=== PATIENT | female | born 1950 | race Two or more races ===

== ENCOUNTER 2021-09-06 08:46 | Inpatient (IN) | payer MEDICARE, OTHER ==
[~2021-09-06] VITALS: Ht 160 cm; Wt 48.1 kg
--- NOTE | 2021-09-06 08:55 | NUR ---
[id number] FOR ALTERED MENTAL STATUS AND DESATURATION AT 90% IN ROOM AIR. RECEIVE PATIENT ON 15L NON REBREATHER MASK. RESPONDING TO PAINFUL STIMULI. PLACED ON BED, ATTACHED TO MONITOR. SEEN AND ATTENDED BY
--- NOTE | 2021-09-06 09:09 | NUR ---
LAST DIALYSIS 09/05/2021
--- NOTE | 2021-09-06 09:10 | NUR ---
BLOOD DRAWN, SWAB FOR COVID ANTIGEN, URINE COLLECTED AND SENT TO LAB.
[2021-09-06 09:21] LABS: BASOPHILS # (AUTO) 0.1 K/uL (0.0-0.2); EOSINOPHILS % (AUTO) 1.5 % (0.0-6.0); HEMATOCRIT 33 % (33-45); HEMOGLOBIN 10.7 g/dL (11.5-14.8); LYMPHOCYTES # (AUTO) 1.1 K/uL (0.8-4.8); LYMPHOCYTES % (AUTO) 19.6 % (20.0-44.0); MEAN CORPUSCULAR HGB CONC 32 g/dl (31.0-36.0); MEAN CORPUSCULAR VOLUME 96 fL (82-100); MONOCYTES # (AUTO) 0.5 K/uL (0.1-1.30); MONOCYTES % (AUTO) 9.6 % (2.0-12.0); NEUTROPHILS # (AUTO) 3.9 K/uL (1.8-8.9); NEUTROPHILS % (AUTO) 68.3 % (43.0-81.0); PLATELET COUNT (AUTO) 180 K/uL (150-450); RED BLOOD CELL COUNT(AUTO) 3.45 MIL/uL (4.0-5.2); WHITE BLOOD COUNT (AUTO) 5.6 K/uL (4.3-11.0)
[2021-09-06 09:31] LABS: CALCIUM, SERUM 9.2 mg/dL (8.5-10.1); CARBON DIOXIDE 31 mmol/L (21-32); CHLORIDE 96 mmol/L (98-107); CREATININE 4.5 mg/dL (0.6-1.3); GLUCOSE 69 mg/dL (74-106); POTASSIUM 3.5 mmol/L (3.5-5.1); SODIUM SERUM 137 mmol/L (136-145); UREA NITROGEN, BLOOD 35 mg/dL (7-18)
[2021-09-06 09:32] LABS: SERUM AMMONIA 15 umol/L (11-32)
[2021-09-06 09:40] LABS: ALANINE AMINOTRANSFERASE 8 U/L (12-78); ALBUMIN 2.2 g/dL (3.4-5.0); ALCOHOL, BLOOD < 3 mg/dL (0-0); ALKALINE PHOSPHATASE 206 U/L (46-116); ASPARTATE AMINOTRANSFERASE 17 U/L (15-37); BILIRUBIN,DIRECT 0.8 mg/dL (0.0-0.2); BILIRUBIN,TOTAL 1.2 mg/dL (0.2-1.0); TOTAL PROTEIN, SERUM 8.1 g/dL (6.4-8.2)
[2021-09-06 09:42] LABS: ACETAMINOPHEN 0 ug/ml (10-30)
[2021-09-06 09:44] LABS: BILIRUBIN,URINE SMALL (NEGATIVE); COLOR,URINE YELLOW (YELLOW); LEUKOCYTE ESTERASE ,URINE MODERATE (NEGATIVE); NITRITE, URINE NEGATIVE (NEGATIVE); PROTEIN,URINE >=300 mg/dl (NEGATIVE); UGLUCOSE NEGATIVE (NEGATIVE); UROBILINOGEN,URINE 0.2 EU/dL (0.2)
--- NOTE | 2021-09-06 09:50 | NUR ---
THE PATIENT IS TAKEN TO CT VIA RNEY
[2021-09-06] MEDS ORDERED: MAGN400O6 PO (09:53)
[2021-09-06] MEDS ORDERED: CRAN425C6 PO (09:53)
[2021-09-06] MEDS ORDERED: EZET10TA16 PO (09:53)
[2021-09-06] MEDS ORDERED: INSU100V7 SQ (09:53)
[2021-09-06] MEDS ORDERED: POLY15DR40 EACHEYE (09:53)
[2021-09-06] MEDS ORDERED: ASCO-352 PO (09:53)
[2021-09-06] MEDS ORDERED: FERR325T23 PO (09:53)
[2021-09-06] MEDS ORDERED: AMIO100T PO (09:53)
[2021-09-06] MEDS ORDERED: ATOR10TA PO (09:53)
[2021-09-06] MEDS ORDERED: CARV6.252 PO (09:53)
[2021-09-06] MEDS ORDERED: MULT-447 PO (09:53)
[2021-09-06] MEDS ORDERED: CALC1TAB30 PO (09:53)
[2021-09-06] MEDS ORDERED: TYL2T PO (09:53)
[2021-09-06] MEDS ORDERED: NITR0.4T48 SL (09:53)
[2021-09-06] MEDS ORDERED: TAMS-12 PO (09:53)
[2021-09-06] MEDS ORDERED: FURO-144 PO (09:53)
[2021-09-06] MEDS ORDERED: ACET-2605 PO (09:53)
[2021-09-06] MEDS ORDERED: PANT20TA2 PO (09:53)
[2021-09-06] MEDS ORDERED: ROPI0.255 PO (09:53)
[2021-09-06] MEDS ORDERED: ACET-868 PO (09:53)
[2021-09-06] MEDS ORDERED: SACU1TAB4 PO (09:53)
[2021-09-06] MEDS ORDERED: INSU100V11 SQ (09:53)
[2021-09-06] MEDS ORDERED: ASPI-1169 PO (09:53)
[2021-09-06] MEDS ORDERED: SODI650T PO (09:53)
[2021-09-06] MEDS ORDERED: SEVE800T8 PO (09:53)
[2021-09-06] MEDS ORDERED: CLOP75TA15 PO (09:53)
--- NOTE | 2021-09-06 09:58 | NUR ---
THE PATIENT IS BACK FROM CT VIA [facility] [place]
[2021-09-06] MEDS ORDERED: ENOXAPARIN SODIUM 60 MG/0.6 ML DISP.SYRIN SQ ONE ×2 (10:00→10:13)
--- NOTE | 2021-09-06 10:00 | NUR ---
RT AT THE BEDSIDE FOR ABG
[2021-09-06 10:07] LABS: ABG BASE EXCESS 4.9 mmol/L; ABG PCO2 38.6 mmHg (35.0-45.0); ABG PH 7.487 (7.350-7.450); ABG PO2 48.5 mmHg (75.0-100.0); COHb 0.8 % (0.5-1.5); MetHb 0.3 % (0.0-1.5); O2Hb 81.7 % (94.0-97.0); SITE, ABG Right Radial
[2021-09-06 10:23] LABS: THYROID STIMULATING HORMONE 6.031 uIU/mL (0.358-3.74)
--- NOTE | 2021-09-06 10:23 | NUR ---
[facility] CALLED [employer]GRAPH[employer] SERVICES SUPERVISOR PAGED.
[2021-09-06] MEDS ORDERED: VANCOMYCIN 1 GM in IV D5W 250 ML IV ONE (10:30)
[2021-09-06] MEDS ORDERED: AZTREONAM 2 G in IV NS 0.9% 100 ML IV ONE (10:30)
[2021-09-06] MEDS ORDERED: CLINDAMYCIN 600 MG in IV D5W 100 ML IV ONE (10:30)
[2021-09-06 10:34] LABS: WBC,URINE TOO NUMEROUS TO COUN /HPF (0-3)
[2021-09-06 10:35] LABS: BACTERIA,URINE Few /HPF (None Seen); SQUAMOUS EPITHELIAL CELL,UR Rare /HPF (None Seen)
--- NOTE | 2021-09-06 10:51 | NUR ---
GOT BED 328-1
--- NOTE | 2021-09-06 11:18 | NUR ---
REPORT GIVEN TO LORNA WU
--- NOTE | 2021-09-06 11:51 | NUR ---
PATIENT TRANSFERED TO [facility] IN STABLE CONDITION PER ACLS POLICY
[2021-09-06] MEDS ORDERED: ONDANSETRON HCL/PF 4 MG/2 ML VIAL IVP PRN (12:00)
[2021-09-06] MEDS ORDERED: Z GUARD REMEDY 4 OZ OINT TP PRN (12:00)
[2021-09-06] MEDS ORDERED: ACETAMINOPHEN 650 MG/SUPP.RECT RC PRN (12:00)
--- NOTE | 2021-09-06 12:00 | NUR ---
WORLD RENOWNED CHEF AND RESTAURANT OWNER OPENING NOTES RECEIVED PATIENT VIA GURNEY FROM ER. AT 12 PM.THIERRY TRANSFERED THE PATIENT VIA GURNEY. PATIENT NON VERBAL AND RESPONSIVE TO PAIN STIMULI ONLY. NO PAIN NOTED NO SOB NOTED, NO FACIAL GRIMACING NOTED. VITAL SIGNS: VT=001/67, P=89, T=98.0, RR=18, 02 = 100 % VIA NASAL CANNULA AT 4 L/MIN. IV ACCESS ON THE RAC G# 20 AND LAC G#20 INTACT. PATIENT IS ON ATB THERAPY. PATIENT IS ON TELE MONITOR. BOTH UPPER AND LOWER [id number] NOTED WITH SKIN DISCOLORATION AND MULTIPLE DRY WOUNDS. LEFT LOWER ARM NOTED WITH OPEN SKIN. PATIENT HAS ONLY UPPER DENTURES IN HER MOUTH, DAUGHTERS PRESENT WHEN CHECKED THE DENTURES. KEPT HEAD OF THE BED ELEVATED FOR ASPIRATION PRECAUTION. BED LOCKED IN THE LOWEST POSITION, SIDE RAILS UP TIMES 2. CALL LIGHT AND TABLE IN REACH. WILL CONTINUE TO MONITOR.
[2021-09-06] MEDS ORDERED: MEROPENEM 1 G in IV NS 0.9% 100 ML IV SCH (13:00)
--- NOTE | 2021-09-06 13:10 | NUR ---
RN NOTES INFORMED VENTILATING EXPERT REGGIE MULLINS AT 1304 FOR TROPONIN-I LEVEL OF 73. NO NEW ORDERS WERE GIVEN
[2021-09-06] MEDS: MEROPENEM 500 MG in IV NS 0.9% 50 ML IV SCH (15:15)
[2021-09-06] MEDS ORDERED: DEXTROSE 50%-WATER 50 ML DISP.SYRIN IV PRN (16:30)
[2021-09-06] MEDS: BLOOD SUGAR DIAGNOSTIC 1 EACH STRIP IN SCH ×2 (17:27→21:32)
[2021-09-06] MEDS: INSULIN REGULAR, HUMAN 100 UNIT/ML 3 ML VIAL SQ PRN ×2 (17:28→21:32)
[2021-09-06] MEDS: IV D5/0.45 NACL 1,000 ML IV PRN (17:43)
--- NOTE | 2021-09-06 19:39 | NUR ---
BOAT RENTAL CLERK CLOSING NOTES PATENT NONVERBAL AND WITH CLOSED EYES IN HER BED. RESPONDS TO PAIN STIMULI ONLY. NO SOB NOTED. NO DISTRESS NOTED. ON TELE MONITOR READING SR WITH BBB AND PVCS AND OCCASIONAL A PACING. IV ACCESS ON BOTH RAC G20 and AND LAC g20 INTACT.PATIENT IS ON IV D5 1/2 NS . BLOOD SUGAR 1700 WAS 64. CHECKED BLOOD SUGAR AFTER D51/2 NS INCREASED TO 74 AT 1930. DURING ROUNDS NOTED PATIENT HAD BLOODY DROOLING. CHECKED THE BACK OF THE THROAT NOTED WITH SLIGHT BLOOD . INFORMED MONOGRAM MAKER SUSANNA PAREDES. REGGIE MULLINS RESPONDED THAT TO TAKE OUT UPPER DENTURE WHEN PATIENT IS ALERT. AND ENDORSED ANIMAL TECHNICIAN NURSE FOR CLOSE MONITORING THE PATIENT FOR BLEEDING AND BLOOD SUGAR CHECKS. KEPT HEAD OF THE BED ELEVATED FOR ASPIRATION PRECAUTION. .ALL DUE MEDS GIVEN. BED LOCKED IN THE LOWEST POSITION. CALL LIGHT AND TABLE IN REACH. WILL ENDORSE FOR INCOMING SHIFT FOR CHIDI.
--- NOTE | 2021-09-06 19:41 | NUR ---
RN OPENING NOTES RECEIVED PT IN BED, ASLEEP, NONVERBAL. ON NC 2LPM AND TOLERATING WELL. NO SOB NOTED. NO S/SX OF RESPIRATORY DISTRESS NOTED. TLEMONITOR DETECTS SR WITH BBB AND PVC AND OCASSIONAL A-PACING AND RATE OF 66. IV ACCESS IN LAC #20G AND RAC #20G RUNNING D51/2NS @ 50 ML/HR. SAFETY PRECAUTIONS IN PLACE: BED IN LOWEST, LOCKED POSITION, SIDERAILS UPx2, AND BRAKES ON. TABLE AND CALL LIGHT WITHIN REACH. WILL CONTINUE TO MONITOR.
[2021-09-07] VITALS (53 sets, daily range): BP systolic 93–166; BP diastolic 46–107
[2021-09-07] MEDS: MEROPENEM 500 MG in IV NS 0.9% 50 ML IV SCH ×2 (02:00→18:22)
--- NOTE | 2021-09-07 03:29 | NUR ---
CONTACT NUMBER FOR DAUGHTER, FATMATA, IS
--- NOTE | 2021-09-07 05:17 | NUR ---
RT STAT ABG COMPLETED, RESULTS GIVEN TO NURSE AND ICU CHARGE NURSE СВЕТЛАНА
[2021-09-07 05:29] LABS: ABG BASE EXCESS 3.8 mmol/L; ABG OXYGEN SATURATION 99.7 % (92.0-98.5); ABG PCO2 36.2 mmHg (35.0-45.0); ABG PH 7.492 (7.350-7.450); ABG PO2 325.8 mmHg (75.0-100.0); COHb 1.5 % (0.5-1.5); MetHb 0.1 % (0.0-1.5); O2Hb 98.1 % (94.0-97.0); SITE, ABG Right Radial; VENT MODE, BG NRB 100%
--- NOTE | 2021-09-07 05:55 | NUR ---
RN NOTES RECEIVED PATIENT FROM [facility] VIA BED FROM [facility] NURSE. WITH IV ACCESS AT RAC AND LAC #20 PATENT FLUSHES WELL. WITH R CW PERMACATH INTACT NO BLEEDING NOTED. WITH L ICD. HOOKED TO TELE MONITOR. ON VENTURI MASK @ 6L 28% FIO2 SATING 92%. VITAL SIGNS TAKEN AND RECORDED. PATIENT IS REPONDED TO PAINFUL STIMULI. STARTED IV D5 1/2 NS @ 50 ML/HR. RT AT BEDSIDE. WILL CONTINUE TO MONITOR.
[2021-09-07] MEDS: IV D5/0.45 NACL 1,000 ML IV PRN ×2 (06:05→18:37)
--- NOTE | 2021-09-07 06:05 | NUR ---
TRANSFER NOTES PT BEGAN HAVING EPISODES OF APNEA AT APPROXIMATELY 0430. CHARGE NURSE MADE AWARE. ICU CHARGE NURSE ORDERED STAT ABG AND CHEST X-RAY. PLACED PATIENT ON NON-REBREATHER AND OXYGEN SATURATION WENT UP TO 97%. RT THEN PLACED PT ON VENTURI MASK. DR. GOTTI ORDERED PATIENT TO BE TRANSFERRED TO [facility] AND NO NEW ORDERS. ALL REQUESTED DR. [facility] BE CONSULTED FOR FURTHER ORDERS. PATIENT TRANSFERRED APPROXIMATELY @ 0550 TO ROOM 116-1. VITAL SIGNS STABLE. BEDSIDE REPORT GIVEN TO [facility] NURSE.
--- NOTE | 2021-09-07 06:20 | NUR ---
RN NOTES PATIENT NOTED WITH SERIES OF EPISODES OF APNEA SATURATION GOES DOWN TO 86%. STILL ON VENTURI MASK @ 6L.
--- NOTE | 2021-09-07 06:49 | NUR ---
RN NOTES STILL WITH SERIES OF APNEIC EPISODES SATURATION DROPS TO 82% ON VENTURI MASK. WILL CONTINUE TO CLOSELY MONITOR
[2021-09-07 06:50] LABS: BASOPHILS # (AUTO) 0.1 K/uL (0.0-0.2); BASOPHILS % (AUTO) 0.8 % (0.0-2.0); EOSINOPHILS % (AUTO) 0.9 % (0.0-6.0); HEMATOCRIT 34 % (33-45); HEMOGLOBIN 11.1 g/dL (11.5-14.8); LYMPHOCYTES # (AUTO) 1.1 K/uL (0.8-4.8); LYMPHOCYTES % (AUTO) 14.3 % (20.0-44.0); MEAN CORPUSCULAR HGB CONC 32 g/dl (31.0-36.0); MEAN CORPUSCULAR VOLUME 97 fL (82-100); MONOCYTES # (AUTO) 0.6 K/uL (0.1-1.30); MONOCYTES % (AUTO) 7.5 % (2.0-12.0); NEUTROPHILS # (AUTO) 6.1 K/uL (1.8-8.9); NEUTROPHILS % (AUTO) 76.5 % (43.0-81.0); PLATELET COUNT (AUTO) 219 K/uL (150-450); RED BLOOD CELL COUNT(AUTO) 3.52 MIL/uL (4.0-5.2); WHITE BLOOD COUNT (AUTO) 7.9 K/uL (4.3-11.0)
--- NOTE | 2021-09-07 07:05 | NUR ---
0705 DR ANTONIO AT BEDSIDE AND UPDATED AND ON PATIENT'S CONDITION. MADE HIM AWARE THAT PATIENT HAS BEEN HAVING FREQUENT APNEA EPISODES WITH ORDER TO DO STAT ABG AND TRANSFER PATIENT TO ICU. ORDER NOTED, ICU NOTIFIED.
--- NOTE | 2021-09-07 07:30 | NUR ---
0730 TRANSFERRED TO ICU ON ACLS PROTOCOL. PATIENT IN NO RESPIRATORY DISTRESS STILL NOTED WITH FREQUENT EPISODES OF APNEA. BEDSIDE REPORT GIVEN BY LORNA CHAMBERS TO DRIVEWAY SEALERLORNA SANCHEZ WITH QUESTIONS ANSWERED.
--- NOTE | 2021-09-07 07:40 | NUR ---
rn note Patient was transferred from [facility] unit at this time on Dx of respiratory distress. patient on face mask 9L, bedside monitor shows O2-95%, HR- 64. Patient confuse, unable to open ayes when calling name or touched. iv access on LAC area intact. bs-113mg/dl. patient has multiple discoloration, and scabs upper and lower extremities. patient has pacemaker on left upper chest, and HD cath on RUC intact. call light within to reach. will follow up.
[2021-09-07 07:59] LABS: ALBUMIN 2.1 g/dL (3.4-5.0); BILIRUBIN,DIRECT 0.7 mg/dL (0.0-0.2); BILIRUBIN,TOTAL 1.1 mg/dL (0.2-1.0); CALCIUM, SERUM 9.3 mg/dL (8.5-10.1); CREATININE 5.3 mg/dL (0.6-1.3); MAGNESIUM 2.1 mg/dL (1.8-2.4); POTASSIUM 3.7 mmol/L (3.5-5.1); TOTAL PROTEIN, SERUM 7.8 g/dL (6.4-8.2)
[2021-09-07] MEDS: PANTOPRAZOLE 40 MG VIAL IV SCH (08:09)
[2021-09-07] MEDS: BLOOD SUGAR DIAGNOSTIC 1 EACH STRIP IN SCH ×4 (08:10→21:16)
--- NOTE | 2021-09-07 10:21 | NUR ---
PT TO UNSTABLE FOR CT/ ORDERING MD
--- NOTE | 2021-09-07 10:35 | NUR ---
PT INTUBATED WITH 7.5 ET-TUBE. SECURED AT 21CM. PLACED ON SETTINGS ORDERED. ALARMS SET AND AUDIBLE. AMBU-BAG AT HEAD OF BED VENT PLUGGED INTO RED OUTLET. B/S CLEAR AND EQUAL.
--- NOTE | 2021-09-07 10:38 | NUR ---
RN NOTES PATIENT GET INTUBATED AT THIS TIME ETT /VENT SETTING 7.5/21 , FIO2-100%, PEEP-5, TV-500, AC-14. PATIENT ON SOFT BILATERAL RESTRAIN INTACT, NGT INTACT. WILL FOLLOW UP.
[2021-09-07] MEDS ORDERED: PROPOFOL 100 ML IV PRN (11:00)
[2021-09-07 11:19] LABS: ABG BASE EXCESS 5.5 mmol/L; ABG OXYGEN SATURATION 89.2 % (92.0-98.5); ABG PCO2 38.2 mmHg (35.0-45.0); ABG PH 7.498 (7.350-7.450); ABG PO2 59.1 mmHg (75.0-100.0); AaDO2 95.5 mmHg; COHb 1.3 % (0.5-1.5); MetHb 0.3 % (0.0-1.5); O2Hb 87.8 % (94.0-97.0); SITE, ABG Right Radial; VENT MODE, BG VENTI MASK
[2021-09-07] MEDS ORDERED: ROCURONIUM BROMIDE 50 MG/5 ML IV ONE (12:12)
[2021-09-07] MEDS ORDERED: ETOMIDATE 2 MG/ML VIAL IV ONE (12:12)
[2021-09-07] MEDS: PROPOFOL 10MG/ML 50ML 50 ML IV PRN ×4 (12:26→22:03)
[2021-09-07] MEDS ORDERED: VANCOMYCIN POST DIALYSIS 500MG IV PRN ×2 (13:00)
[2021-09-07] MEDS ORDERED: PHARMACY TO CHANGE PO MEDS TO GT/NG XX PRN (13:30)
[2021-09-07 13:35] LABS: ABG BASE EXCESS 3.3 mmol/L; ABG OXYGEN SATURATION 99.6 % (92.0-98.5); ABG PCO2 39.8 mmHg (35.0-45.0); ABG PH 7.456 (7.350-7.450); ABG PO2 294.8 mmHg (75.0-100.0); AaDO2 378.4 mmHg; COHb 0.7 % (0.5-1.5); MetHb 0.2 % (0.0-1.5); O2Hb 98.7 % (94.0-97.0); PEEP,BG 5 cm H2O; SITE, ABG Right Radial; VT, ABG 450 mL
--- NOTE | 2021-09-07 14:35 | NUR ---
rn notes patient getting hemodialysis at this time.
[2021-09-07] MEDS ORDERED: VANCOMYCIN 1 GM in IV D5W 250ml IV ONE (17:00)
--- NOTE | 2021-09-07 17:10 | NUR ---
rn notes FINISHED HD AT THIS TIMEOUTPUT [place] 2000ML, BP-104/51, P-64.
--- NOTE | 2021-09-07 18:30 | NUR ---
RN NOTES PATIENT STABLE SUCTION, MOUTH CARE DONE, ASSIST TURN AND REPOSTION Q 2 HR, BS75MG/DL, PO MEDICATION ADMINISTERED, VSS. INFUSING DIPRIVAN 45MCG/KG/HR, D51/2 NS@50ML/HR, AND VANCOMYCIN X1 250ML/HR AFTER HD. ENDORSED ONCOMING NURSE FOLLOW PLAN OF CARE, RESTRAIN INTACT RECHECKED CIRCULATION Q 2 HR. PATIENT ANURIC, BUT URINATED X1 SMALL AMOUNT. IN THE DIAPER.
[2021-09-07] MEDS: IV NS 0.9% 250 ML IV PRN (18:43)
--- NOTE | 2021-09-07 19:10 | NUR ---
RN NOTES RECEIVED REPORT FROM MORNING RN PATIENT IN BED WITH ETT 7.10/07 CONNECTED TO VENT AC 14, TV 450, FIO2 40% PEEP 5 TOLERATING WELL SATING 99%. WITH IV ACCESS AT L AC #20 CHERIE MIDLINE #18 PATENT FLUSHES WELL. WITH ONGOING DIPRIVAN DRIP @ 45 MCG/KG/MIN, D5 1/2 NS @ 50ML/HR. PATIENT IS SEDATED. WITH R CHEST WALL PERMACATH INTACT NO BLEEDING NOTED. NGT PATENT FOR MEDICATION ADMINISTRATION. VITAL SIGNS TAKEN AND RECORDED AFEBRILE. WITH BILATERAL SOFT WRIST RESTRAINTS IN PLACE. ALL SAFETY MEASURES IN PLACE AT ALL TIMES. HOB ELEVATED. CALL LIGHT WITHIN REACH. BED ON LOWEST POSITION AND SELVIN. WILL CLOSELY MONITOR THE PATIENT
[2021-09-07] MEDS: CARVEDILOL 6.25 MG TABLET GT SCH (19:18)
[2021-09-07] MEDS: AMIODARONE HCL 200 MG TABLET GT SCH (19:19)
[2021-09-07] MEDS: SEVELAMER CARBONATE 800 MG POWD.PACK GT SCH (19:19)
[2021-09-07] MEDS: TAMSULOSIN 0.4 MG CAP.SR.24H GT SCH (21:09)
[2021-09-07] MEDS: ATORVASTATIN 10 MG TABLET GT SCH (21:09)
[2021-09-07] MEDS: EZETIMIBE 10 MG TABLET GT SCH (21:09)
[2021-09-07] MEDS: ropiniROLE 0.5 MG TABLET GT SCH (21:09)
[2021-09-07] MEDS: INSULIN REGULAR, HUMAN 100 UNIT/ML 3 ML VIAL SQ PRN (21:18)
[2021-09-08] VITALS (61 sets, daily range): BP systolic 87–144; BP diastolic 37–63
[2021-09-08] MEDS: PROPOFOL 10MG/ML 50ML 50 ML IV PRN ×6 (02:41→23:59)
[2021-09-08] MEDS: MEROPENEM 500 MG in IV NS 0.9% 50 ML IV SCH ×2 (02:53→15:37)
--- NOTE | 2021-09-08 06:44 | NUR ---
RN NOTES PATIENT REMAINS STABLE NO SIGNIFICANT CHANGES. STILL ON ETT CONNECTED TO MV WITH PRESCRIBED SETTING TOLERATING WELL BY THE PATIENT. WITH MIDLINE INTACT PATENT ON DIPRIVAN DRIP AT 35 MCG/KG/MIN. D5 1/2 NS @50CC/HR. ALL DUE MEDS GIVEN ORDERED. ALL SAFETY MEASURES IN PLACE. HOB ELEVATED. STILL ON SOFT WRIST RESTRAINTS. WILL ENDORSED TO MORNING SHIFT FOR CHIDI
[2021-09-08] MEDS: BLOOD SUGAR DIAGNOSTIC 1 EACH STRIP IN SCH ×4 (07:30→23:57)
--- NOTE | 2021-09-08 07:30 | NUR ---
OPENING NOTE: REPORT RECEIVED FROM CARMEN ROTHMAN. PT INTUBATED, SEDATED ON PROPOFOL PER MD ORDERS. PER REPORT NO SIGNIFICANT EVENTS OVERNIGHT. ORDERS AND LABS REVIEWED DURING REPORT. PT CHECKED ON HOURLY AND PRN BY NURSING STAFF.
[2021-09-08] MEDS: SEVELAMER CARBONATE 800 MG POWD.PACK GT SCH ×3 (07:52→17:12)
[2021-09-08] MEDS: CARVEDILOL 6.25 MG TABLET GT SCH ×2 (07:53→17:00)
[2021-09-08] MEDS ORDERED: INSULIN REGULAR, HUMAN 100 UNIT/ML 3 ML VIAL SQ PRN (08:00)
[2021-09-08] MEDS ORDERED: DEXTROSE 50%-WATER 50 ML DISP.SYRIN IV PRN (08:00)
[2021-09-08 08:22] LABS: ABG OXYGEN SATURATION 94.5 % (92.0-98.5); ABG PCO2 33.8 mmHg (35.0-45.0); ABG PH 7.473 (7.350-7.450); ABG PO2 77.5 mmHg (75.0-100.0); AaDO2 168.8 mmHg; COHb 1.3 % (0.5-1.5); MetHb 0.3 % (0.0-1.5); SITE, ABG Left Radial
[2021-09-08] MEDS: PANTOPRAZOLE 40 MG VIAL IV SCH (09:05)
[2021-09-08] MEDS: CLOPIDOGREL BISULFATE 75 MG TABLET GT SCH (09:06)
[2021-09-08] MEDS: ASCORBIC ACID 500 MG TABLET GT SCH (09:06)
[2021-09-08] MEDS: FERROUS SULFATE (325 MG) 325 MG/TAB TABLET GT SCH (09:06)
[2021-09-08] MEDS: ASPIRIN 81 MG TAB.CHEW GT SCH (09:06)
[2021-09-08] MEDS: AMIODARONE HCL 200 MG TABLET GT SCH ×2 (09:07→18:09)
[2021-09-08] MEDS: CALCIUM CARB 250MG /VITAMIN D 1 UDTAB GT SCH (09:10)
[2021-09-08 10:06] LABS: BASOPHILS % (AUTO) 0.9 % (0.0-2.0); EOSINOPHILS % (AUTO) 3.2 % (0.0-6.0); HEMATOCRIT 34 % (33-45); HEMOGLOBIN 11.1 g/dL (11.5-14.8); LYMPHOCYTES # (AUTO) 0.5 K/uL (0.8-4.8); LYMPHOCYTES % (AUTO) 9.6 % (20.0-44.0); MEAN CORPUSCULAR HGB CONC 33 g/dl (31.0-36.0); MEAN CORPUSCULAR VOLUME 96 fL (82-100); MONOCYTES # (AUTO) 0.4 K/uL (0.1-1.30); MONOCYTES % (AUTO) 7.6 % (2.0-12.0); NEUTROPHILS # (AUTO) 3.9 K/uL (1.8-8.9); NEUTROPHILS % (AUTO) 78.7 % (43.0-81.0); PLATELET COUNT (AUTO) 155 K/uL (150-450); RED BLOOD CELL COUNT(AUTO) 3.54 MIL/uL (4.0-5.2)
[2021-09-08 10:16] LABS: CALCIUM, SERUM 8.3 mg/dL (8.5-10.1); CREATININE 3.5 mg/dL (0.6-1.3); POTASSIUM 2.9 mmol/L (3.5-5.1)
[2021-09-08 10:21] LABS: ALBUMIN 1.7 g/dL (3.4-5.0); MAGNESIUM 1.9 mg/dL (1.8-2.4); PHOSPHORUS 2.7 mg/dL (2.5-4.9); TOTAL PROTEIN, SERUM 6.8 g/dL (6.4-8.2)
--- NOTE | 2021-09-08 11:06 | NUR ---
WOUND CARE CONSULT: PT PRESENTS WITH SKIN TEARS TO RT ARM AND RT LOWER LEG, PRESENT ON ADMISSION. SACRAL SCARRING NOTED WITH VERY BONY AREA. DPM CONSULT CALLED TO DR HER FOR LOWER LEG WOUND. RECOMMENDATIONS MADE FOR SKIN PROTECTION. DISCUSSED WITH NURSING STAFF. FIRST STEP LOW AIRLOSS MATTRESS IS ON ORDER. MD IN AGREEMENT WITH PLAN OF CARE.
[2021-09-08] MEDS: POTASSIUM CL. PREMIX PERIPHER. 50 ML IV SCH ×3 (12:32→16:10)
[2021-09-08] MEDS: IV NS 0.9% 250 ML IV PRN (14:57)
--- NOTE | 2021-09-08 18:57 | NUR ---
END OF SHIFT NOTE: PT HAD A FAIRLY UNEVENTFUL SHIFT. SEDATION VACATION THIS AM, PT WOKE UP EASILY BUT WAS VERY AGITATED AND RESEDATED PER MD ORDERS. NO HD TODAY. OVERLAY MATTRESS PUT ON BED TODAY PER MD ORDERS.. CT OF CHEST DONE TODAY WITHOUT DIFFICULTY. PT CHECKED ON HOURLY AND PRN BY NURSING STAFF.
--- NOTE | 2021-09-08 19:00 | NUR ---
RN NOTE RECEIVED REPORT FROM SAHARA ROTHMAN, PATIENT IN BED, SEDATED, IN NO ACUTE DISTRESS AT THIS TIME. ON ET TUBE 7.10/07 ON THE LIP CONNECTED TO MECHANICAL VENT WITH SETTINGS PRESCRIBED: AC 14, TV 450, FIO2 40%, PEEP 5, TOLERATING WELL, SATURATION AT 100%, SR ON THE MONITOR, HR IS 72. NOTED CHERIE MIDLINE, PATENT AND FLUSHING WELL, WITH NS AT TKO AND DIPRIVAN AT 30 MCG/G/MIN, AND PERMACATH AT R UPPER CHEST, NO S/S OF INFECTION OR BLEEDING. NGTUBE IN PLACE AT 55 CM ON THE R NARE, INTACT, POSITIVE PLACEMENT NOTED, CLAMPED. SOFT WRIST RESTRAINTS IN PLACE AT B WRISTS. SAFETY MEASURES IMPLEMENTED. PATIENT BED ALARM IS ON. HEAD OF BED ELEVATED. BED IS LOCKED, IN LOWEST POSITION AND SIDE RAILS UP. WILL CONTINUE TO MONITOR AND REASSESS FOR ANY CHANGES.
[2021-09-08] MEDS: TAMSULOSIN 0.4 MG CAP.SR.24H GT SCH (21:39)
[2021-09-08] MEDS: EZETIMIBE 10 MG TABLET GT SCH (21:40)
[2021-09-08] MEDS: ATORVASTATIN 10 MG TABLET GT SCH (21:40)
[2021-09-08] MEDS: ropiniROLE 0.5 MG TABLET GT SCH (21:40)
[2021-09-09] VITALS (45 sets, daily range): BP systolic 83–128; BP diastolic 38–66
[2021-09-09] MEDS: MEROPENEM 500 MG in IV NS 0.9% 50 ML IV SCH ×2 (02:24→16:25)
[2021-09-09] MEDS: PROPOFOL 10MG/ML 50ML 50 ML IV PRN ×5 (05:18→21:32)
[2021-09-09] MEDS: BLOOD SUGAR DIAGNOSTIC 1 EACH STRIP IN SCH ×4 (05:39→23:27)
--- NOTE | 2021-09-09 07:30 | NUR ---
OPENING NOTE: REPORT RECEIVED FROM DEAN ROTHMAN. NO SIGNIFICANT EVENTS OVERNIGHT. PER REPORT PT HAD A LARGE BM OVERNIGHT. NO CHANGES IN PROPOFOL RATE OR VENT SETTINGS OVERNIGHT. ORDERS AND LABS REVIEWED DURING REPORT. PT CHECKED ON HOURLY AND PRN BY NURSING STAFF.
[2021-09-09] MEDS: SEVELAMER CARBONATE 800 MG POWD.PACK GT SCH ×3 (07:41→17:05)
[2021-09-09] MEDS: CARVEDILOL 6.25 MG TABLET GT SCH ×2 (07:42→17:00)
[2021-09-09 08:09] LABS: CALCIUM, SERUM 8.2 mg/dL (8.5-10.1); CREATININE 4.2 mg/dL (0.6-1.3); POTASSIUM 4.3 mmol/L (3.5-5.1)
[2021-09-09] MEDS: ASCORBIC ACID 500 MG TABLET GT SCH (09:46)
[2021-09-09] MEDS: AMIODARONE HCL 200 MG TABLET GT SCH ×2 (09:47→17:05)
[2021-09-09] MEDS: FERROUS SULFATE (325 MG) 325 MG/TAB TABLET GT SCH (09:47)
[2021-09-09] MEDS: PANTOPRAZOLE 40 MG VIAL IV SCH (09:47)
[2021-09-09] MEDS: CALCIUM CARB 250MG /VITAMIN D 1 UDTAB GT SCH (09:47)
[2021-09-09] MEDS: ASPIRIN 81 MG TAB.CHEW GT SCH (09:47)
[2021-09-09] MEDS: CLOPIDOGREL BISULFATE 75 MG TABLET GT SCH (09:47)
[2021-09-09] MEDS: NEPRO 1,000 ML BOTTLE GT PRN (09:49)
[2021-09-09] MEDS: IV NS 0.9% 250 ML IV PRN (16:25)
--- NOTE | 2021-09-09 18:35 | NUR ---
END OF SHIFT NOTE: PT HAD A FAIRLY UNEVENTFUL SHIFT. PT HAD HD, 2L OFF. TUBE FEEDING STARTED PER MD ORDERS. PT IS LIGHTLY SEDATED, AWAKENS EASILY TO LIGHT TOUCH. PT CHECKED ON HOURLY AND PRN BY NURSING STAFF.
--- NOTE | 2021-09-09 19:10 | NUR ---
RN NOTE RECEIVED REPORT FROM SAHARA ROTHMAN, PATIENT IN BED, SEDATED, IN NO ACUTE DISTRESS AT THIS TIME. ON ET TUBE 7.10/07 ON THE LIP CONNECTED TO MECHANICAL VENT WITH SETTINGS PRESCRIBED: AC 14, TV 450, FIO2 40%, PEEP 5, TOLERATING WELL, SATURATION AT 100%, SR ON THE MONITOR, HR IS 74. NOTED CHERIE MIDLINE, PATENT AND FLUSHING WELL, WITH NS AT TKO AND DIPRIVAN AT 30 MCG/KG/MIN, AND PERMACATH AT R UPPER CHEST, NO S/S OF INFECTION OR BLEEDING. PACEMAKER AT L UPPER CHEST IN PLACE. NGTUBE IN PLACE AT 55 CM ON THE R NARE, INTACT, POSITIVE PLACEMENT NOTED, NO RESIDUAL, WITH TUBE FEEDING OF NEPRO AT 15 ML/HR WITH A GOAL OF 35 ML/HR. SOFT RESTRAINTS IN PLACE AT B WRISTS. SAFETY MEASURES IMPLEMENTED. PATIENT BED ALARM IS ON. HEAD OF BED ELEVATED. BED IS LOCKED, IN LOWEST POSITION AND SIDE RAILS UP. WILL CONTINUE TO MONITOR AND REASSESS FOR ANY CHANGES.
[2021-09-09] MEDS: ropiniROLE 0.5 MG TABLET GT SCH (21:58)
[2021-09-09] MEDS: ATORVASTATIN 10 MG TABLET GT SCH (21:58)
[2021-09-09] MEDS: TAMSULOSIN 0.4 MG CAP.SR.24H GT SCH (21:58)
[2021-09-09] MEDS: EZETIMIBE 10 MG TABLET GT SCH (21:58)
[2021-09-10] VITALS (61 sets, daily range): BP systolic 67–123; BP diastolic 26–60
[2021-09-10] MEDS: PROPOFOL 10MG/ML 50ML 50 ML IV PRN ×4 (02:28→18:43)
[2021-09-10] MEDS: MEROPENEM 500 MG in IV NS 0.9% 50 ML IV SCH ×2 (02:56→15:29)
[2021-09-10] MEDS: INSULIN REGULAR, HUMAN 100 UNIT/ML 3 ML VIAL SQ PRN ×3 (05:33→23:46)
[2021-09-10] MEDS: BLOOD SUGAR DIAGNOSTIC 1 EACH STRIP IN SCH ×4 (05:34→23:45)
[2021-09-10 05:41] LABS: BASOPHILS # (AUTO) 0.1 K/uL (0.0-0.2); BASOPHILS % (AUTO) 1.2 % (0.0-2.0); EOSINOPHILS % (AUTO) 3.9 % (0.0-6.0); HEMATOCRIT 32 % (33-45); HEMOGLOBIN 10.6 g/dL (11.5-14.8); LYMPHOCYTES # (AUTO) 0.4 K/uL (0.8-4.8); LYMPHOCYTES % (AUTO) 8.6 % (20.0-44.0); MEAN CORPUSCULAR HGB CONC 33 g/dl (31.0-36.0); MEAN CORPUSCULAR VOLUME 95 fL (82-100); MONOCYTES # (AUTO) 0.5 K/uL (0.1-1.30); MONOCYTES % (AUTO) 9.7 % (2.0-12.0); NEUTROPHILS # (AUTO) 3.6 K/uL (1.8-8.9); NEUTROPHILS % (AUTO) 76.6 % (43.0-81.0); PLATELET COUNT (AUTO) 158 K/uL (150-450); RED BLOOD CELL COUNT(AUTO) 3.39 MIL/uL (4.0-5.2); WHITE BLOOD COUNT (AUTO) 4.7 K/uL (4.3-11.0)
[2021-09-10 05:51] LABS: CALCIUM, SERUM 8.3 mg/dL (8.5-10.1); CREATININE 3.4 mg/dL (0.6-1.3); MAGNESIUM 1.8 mg/dL (1.8-2.4); POTASSIUM 4.2 mmol/L (3.5-5.1)
--- NOTE | 2021-09-10 07:30 | NUR ---
RN NOTES PT FOUND SEMI FOWLERS DISPLAYING NO S/S OF DISTRESS, FLACC = 0, RIKERS = 3 AND BILATERAL RISE AND FALL OF THE CHEST OBSERVED. RESIDUAL < 5ML PER NGT. R CW PERMACATH DRESSING IS CLEAN AND DRY. L UA ML IS PATIENT AND INTACT. VSS, RN WILL MONITOR AND TREAT THROUGHOUT SHIFT. SAFETY MEASURES IN PLACE, BED LOCKED AND IN LOWEST POSITION, SIDE RAILS UPX2, CALL LIGHT WITHIN REACH, BED ALARM ARMED.
[2021-09-10] MEDS: CALCIUM CARB 250MG /VITAMIN D 1 UDTAB GT SCH (08:22)
[2021-09-10] MEDS: ASCORBIC ACID 500 MG TABLET GT SCH (08:23)
[2021-09-10] MEDS: SEVELAMER CARBONATE 800 MG POWD.PACK GT SCH ×3 (08:23→17:41)
[2021-09-10] MEDS: PANTOPRAZOLE 40 MG/PACK PACK GT SCH (08:23)
[2021-09-10] MEDS: CLOPIDOGREL BISULFATE 75 MG TABLET GT SCH (08:23)
[2021-09-10] MEDS: ASPIRIN 81 MG TAB.CHEW GT SCH (08:23)
[2021-09-10] MEDS: AMIODARONE HCL 200 MG TABLET GT SCH ×2 (08:23→17:41)
[2021-09-10] MEDS: FERROUS SULFATE (325 MG) 325 MG/TAB TABLET GT SCH (08:23)
[2021-09-10] MEDS: CARVEDILOL 6.25 MG TABLET GT SCH ×2 (09:00→17:00)
[2021-09-10] MEDS: IV NS 0.9% 250 ML IV PRN (15:58)
[2021-09-10] MEDS: NEPRO 1,000 ML BOTTLE GT PRN (15:58)
--- NOTE | 2021-09-10 18:30 | NUR ---
HARNESS TIER COMMUNICATION RN SPOKE TO HARNESS TIER LORNA MULLINS INFORMED HARNESS TIER OF LOW BP (70/30 MAP OF 46) AND A HR OF 105. RN ALSO DISCUSSED CURRENT PROPOFOL TITRATION, 25 MCG/KG/MIN. HARNESS TIER GAVE ORDERS, START NEOSYNEPHRINE IV AT 0.5 MCG/KG/MIN AND TITRATE TO MAINTAIN MAP OF 60. RN ACKNOWLEDGED AND WILL ENTER ORDERS DIRECTED.
[2021-09-10] MEDS: PHENYLEPHRINE 50 MG in IV NS 0.9% 245 ML IV PRN (18:31)
--- NOTE | 2021-09-10 19:19 | NUR ---
RN NOTES PT FOUND SEMI FOWLERS DISPLAYING NO S/S OF DISTRESS, FLACC = 0, RIKERS = 3 AND BILATERAL RISE AND FALL OF THE CHEST OBSERVED. RESIDUAL < 5ML PER NGT. R CW PERMACATH DRESSING IS CLEAN AND DRY. L UA ML IS PATIENT AND INTACT. HEMODYNAMIC INSTABILITY STARTED AT 1800, ONGOING TITRATION OF NEOSYNEPHRINE USED TO ACHIEVE ADEQUATE PROFUSION. SBAR AND REPORT GIVEN TO WAFER FABRICATION TECHNICIAN RN, ALL QUESTIONS ANSWERED. SAFETY MEASURES IN PLACE, BED LOCKED AND IN LOWEST POSITION, SIDE RAILS UPX2, CALL LIGHT WITHIN REACH, BED ALARM ARMED. PT ENDORSED TO WAFER FABRICATION TECHNICIAN FOR CHIDI.
--- NOTE | 2021-09-10 19:30 | NUR ---
RN NOTE PT RECEIVED IN BED. PT IS TRACH/VENT WITH SETTINGS AT AC: 14, TV: 450, FIO2:40%, AND PEEP OF 5. TOLERATING CURRENT SETTINGS WELL WITH OXYGEN SATURATION >98%. PT CURRENTLY SEDATED ON PROPOFOL INFUSING AT 25 MCG/KG/MIN. NGT NOTED ON RIGHT NARE RUNNING NEPRO AT 35 CC/HR. TOLERATING WELL WITH NO RESIDUAL NOTED. PT ON BEDSIDE MONITOR SHOWING NSR. IV ACCESS NOTED ON LEFT UPPER ARM ML AND RIGHT UPPER CW PERMACATH NOTED WELL. NEOSYNEPHRINE INFUSING AT 0.8 MCG/KG/MIN. ALL SAFETY MEASURES IMPLEMENTED. WILL CONTINUE TO MONITOR AND ASSESS FOR ANY CHANGES DURING SHIFT.
[2021-09-10] MEDS: EZETIMIBE 10 MG TABLET GT SCH (21:11)
[2021-09-10] MEDS: ropiniROLE 0.5 MG TABLET GT SCH (21:11)
[2021-09-10] MEDS: ATORVASTATIN 10 MG TABLET GT SCH (21:11)
[2021-09-10] MEDS: TAMSULOSIN 0.4 MG CAP.SR.24H GT SCH (21:12)
[2021-09-11] VITALS (71 sets, daily range): BP systolic 101–135; BP diastolic 35–72
[2021-09-11] MEDS: PROPOFOL 10MG/ML 50ML 50 ML IV PRN ×3 (01:11→08:48)
[2021-09-11] MEDS: MEROPENEM 500 MG in IV NS 0.9% 50 ML IV SCH ×2 (03:17→15:28)
[2021-09-11 04:41] LABS: BASOPHILS # (AUTO) 0.1 K/uL (0.0-0.2); BASOPHILS % (AUTO) 1.3 % (0.0-2.0); EOSINOPHILS % (AUTO) 3.2 % (0.0-6.0); HEMATOCRIT 30 % (33-45); HEMOGLOBIN 9.9 g/dL (11.5-14.8); LYMPHOCYTES # (AUTO) 0.7 K/uL (0.8-4.8); LYMPHOCYTES % (AUTO) 10.5 % (20.0-44.0); MEAN CORPUSCULAR HGB CONC 33 g/dl (31.0-36.0); MEAN CORPUSCULAR VOLUME 95 fL (82-100); MONOCYTES # (AUTO) 0.7 K/uL (0.1-1.30); MONOCYTES % (AUTO) 10.8 % (2.0-12.0); NEUTROPHILS # (AUTO) 5.1 K/uL (1.8-8.9); NEUTROPHILS % (AUTO) 74.2 % (43.0-81.0); PLATELET COUNT (AUTO) 161 K/uL (150-450); RED BLOOD CELL COUNT(AUTO) 3.19 MIL/uL (4.0-5.2); WHITE BLOOD COUNT (AUTO) 6.9 K/uL (4.3-11.0)
[2021-09-11 04:47] LABS: CALCIUM, SERUM 9.1 mg/dL (8.5-10.1); CREATININE 4.5 mg/dL (0.6-1.3); MAGNESIUM 2.1 mg/dL (1.8-2.4); PHOSPHORUS 3.3 mg/dL (2.5-4.9); POTASSIUM 3.9 mmol/L (3.5-5.1)
[2021-09-11] MEDS: BLOOD SUGAR DIAGNOSTIC 1 EACH STRIP IN SCH ×4 (05:33→23:37)
[2021-09-11] MEDS: INSULIN REGULAR, HUMAN 100 UNIT/ML 3 ML VIAL SQ PRN ×2 (05:34→23:37)
--- NOTE | 2021-09-11 06:24 | NUR ---
RN NOTE NO CHANGES IN PT CONDITION DURING SHIFT. PT IS TRACH/VENT WITH SETTINGS AT AC: 14, TV: 450, FIO2:40%, AND PEEP OF 5. TOLERATING CURRENT SETTINGS WELL WITH CURRENT OXYGEN SATURATION AT 100%. PT CURRENTLY SEDATED ON PROPOFOL INFUSING AT 25 MCG/KG/MIN. NGT NOTED ON RIGHT NARE RUNNING NEPRO AT 35 CC/HR. IV ACCESS NOTED ON LEFT UPPER ARM ML AND RIGHT UPPER CW PERMACATH NOTED WELL. NEOSYNEPHRINE INFUSING AT 0.8 MCG/KG/MIN. ALL SAFETY MEASURES IMPLEMENTED. PT KEPT CLEAN AND COMFORTABLE. ALL DUE MEDS GIVEN ORDERED. WILL ENDORSE TO MORNING SHIFT RN FOR CHIDI.
[2021-09-11] MEDS: AMIODARONE HCL 200 MG TABLET GT SCH ×2 (08:05→17:24)
[2021-09-11] MEDS: FERROUS SULFATE (325 MG) 325 MG/TAB TABLET GT SCH (08:06)
[2021-09-11] MEDS: ASCORBIC ACID 500 MG TABLET GT SCH (08:06)
[2021-09-11] MEDS: PANTOPRAZOLE 40 MG/PACK PACK GT SCH (08:06)
[2021-09-11] MEDS: SEVELAMER CARBONATE 800 MG POWD.PACK GT SCH ×3 (08:06→17:24)
[2021-09-11] MEDS: ASPIRIN 81 MG TAB.CHEW GT SCH (08:06)
[2021-09-11] MEDS: CLOPIDOGREL BISULFATE 75 MG TABLET GT SCH (08:06)
[2021-09-11] MEDS: CALCIUM CARB 250MG /VITAMIN D 1 UDTAB GT SCH (08:06)
[2021-09-11] MEDS: PHENYLEPHRINE 50 MG in IV NS 0.9% 245 ML IV PRN (08:09)
[2021-09-11 08:32] LABS: ABG BASE EXCESS -0.1 mmol/L; ABG OXYGEN SATURATION 97.5 % (92.0-98.5); ABG PCO2 32.9 mmHg (35.0-45.0); ABG PH 7.465 (7.350-7.450); ABG PO2 101.5 mmHg (75.0-100.0); AaDO2 145.9 mmHg; COHb 0.7 % (0.5-1.5); O2Hb 96.8 % (94.0-97.0); PEEP,BG 5 cm H2O; SITE, ABG Left Radial; VENT MODE, BG AC 14 500 40% +5; VT, ABG 500 mL
[2021-09-11] MEDS ORDERED: DC PROPOFOL WHEN EXTUBATED XX PRN (11:00)
--- NOTE | 2021-09-11 11:05 | NUR ---
MD COMMUNICATION RN SPOKE TO DR NORTH ABOUT CONTINUING PROBLEM WITH P PEAK HIGHS. GAVE ORDERS: NGOZI HAWK Q6H. RN ACKNOWLEDGED AND WILL ENTER ORDERS DIRECTED.
[2021-09-11] MEDS: IPRATROPIUM NEB FS 0.5 MG/2.5 ML AMPUL.NEB NEB SCH ×3 (12:58→19:26)
[2021-09-11] MEDS: ALBUTEROL FS 2.5 MG/3 ML VIAL.NEB NEB SCH ×3 (12:58→19:26)
--- NOTE | 2021-09-11 14:20 | NUR ---
RN NOTE PT SUCCESSFULLY EXTUBATED. RN WILL CLOSELY MONITOR RESPIRATORY STATUS.
--- NOTE | 2021-09-11 14:25 | NUR ---
SECOND CUTTER COMMUNICATION RN SPOKE TO SECOND CUTTER SUSANNA, SECOND CUTTER GAVE ORDERS: SWALLOW EVALUATION. RN ACKNOWLEDGED AND WILL ENTER ORDERS DIRECTED.
--- NOTE | 2021-09-11 14:31 | NUR ---
RT NOTE PT EXTUBATED AT 1415 BY JOSUE SYSTEM SOFTWARE DEVELOPER AND GIL SYSTEM SOFTWARE DEVELOPER PER DR NORTH ORDER. PT PLACED ON 5L NC AND TOLERATING. NO SOB NOTED. WILL CONTINUE TO MONITOR FOR CHANGES. Addendum: 09/11/21 at 1433 by Gil Fabian RT Amended: Links added.
--- NOTE | 2021-09-11 15:01 | NUR ---
RT NOTE SPUTUM SAMPLE COLLECTED BY JOSUE BALDWIN. Addendum: 09/11/21 at 1502 by Gil Fabian RT Amended: Links added.
[2021-09-11] MEDS: NEPRO 1,000 ML BOTTLE GT PRN (17:24)
--- NOTE | 2021-09-11 18:03 | NUR ---
GOLD LEAF GILDER COMMUNICATION RN INFORMED MONSE MULLIGAN THAT PT HAD BECOME SO ALTERED THAT PT WAS UNABLE TO ANSWER QUESTIONS. BILATERAL SOFT WRISTS APPLIED, PULSES PALPATED BILATERALLY. GOLD LEAF GILDER ACKNOWLEDGED ORDER AND GAVE ONE WELL: STAT ABG. Addendum: 09/11/21 at 1841 by MIKA ESTEVEZ RN IGNORE, WRONG PATIENT
[2021-09-11 18:56] LABS: ABG BASE EXCESS -0.7 mmol/L; ABG OXYGEN SATURATION 91.1 % (92.0-98.5); ABG PCO2 32.9 mmHg (35.0-45.0); ABG PH 7.454 (7.350-7.450); ABG PO2 63.9 mmHg (75.0-100.0); AaDO2 111.3 mmHg; COHb 1.2 % (0.5-1.5); MetHb 0.3 % (0.0-1.5); O2Hb 89.7 % (94.0-97.0); SITE, ABG Left Radial
--- NOTE | 2021-09-11 19:10 | NUR ---
RN NOTES PT FOUND SEMI FOWLERS DISPLAYING NO S/S OF DISTRESS, FLACC = 0, AND BREATHING IS EVEN AND UNLABORED ON 3L O2 NC. RESIDUAL < 5ML PER NGT. R CW PERMACATH DRESSING IS CLEAN AND DRY. L UA ML IS PATIENT AND INTACT. SBAR AND REPORT GIVEN TO WILDLIFE BIOLOGIST RN, ALL QUESTIONS ANSWERED. SAFETY MEASURES IN PLACE, BED LOCKED AND IN LOWEST POSITION, SIDE RAILS UPX2, CALL LIGHT WITHIN REACH, BED ALARM ARMED. PT ENDORSED IN STABLE CONDITION FOR CHIDI.
--- NOTE | 2021-09-11 19:20 | NUR ---
RN NOTE PT RECEIVED IN BED. PT WAS EXTUBATED EARLIER DURING DAY PER ENDORSEMENT. PT NOW ON 3L OF O2 VIA NC SHOWING NO S/SX OF RESP DISTRESS. NGT NOTED ON RIGHT NARE RUNNING NEPRO AT 35 CC/HR. PT TOLERATING WELL WITH NO RESIDUAL NOTED. IV ACCESS NOTED ON LEFT UPPER ARM ML AND RIGHT UPPER CW PERMACATH NOTED WELL. ALL SAFETY MEASURES IMPLEMENTED. WILL CONTINUE TO MONITOR AND ASSESS FOR ANY CHANGES DURING SHIFT.
[2021-09-11] MEDS: ropiniROLE 0.5 MG TABLET GT SCH (21:39)
[2021-09-11] MEDS: TAMSULOSIN 0.4 MG CAP.SR.24H GT SCH (21:40)
[2021-09-11] MEDS: EZETIMIBE 10 MG TABLET GT SCH (21:40)
[2021-09-11] MEDS: ATORVASTATIN 10 MG TABLET GT SCH (21:40)
--- NOTE | 2021-09-11 21:50 | NUR ---
RT NOTE INCREASED FIO2 6 LPM NASAL CANNULA WITH HUMIDIFIER. RN DEBRA NOTIFIED. SPO2 IMPROVING. WILL MONITOR.
[2021-09-12] VITALS (47 sets, daily range): BP systolic 108–143; BP diastolic 44–77
[2021-09-12] MEDS: ALBUTEROL FS 2.5 MG/3 ML VIAL.NEB NEB SCH ×4 (01:42→20:28)
[2021-09-12] MEDS: IPRATROPIUM NEB FS 0.5 MG/2.5 ML AMPUL.NEB NEB SCH ×4 (01:42→20:28)
--- NOTE | 2021-09-12 03:06 | NUR ---
RT NOTE INCREASED O2 TO SIMPLE MASK @ 8 LPM. SPO2 @ 97%. LORNA RICHARDSON @ BEDSIDE. WILL CONTINUE TO MONITOR.
[2021-09-12] MEDS: MEROPENEM 500 MG in IV NS 0.9% 50 ML IV SCH ×2 (03:51→14:19)
[2021-09-12 04:21] LABS: BASOPHILS % (AUTO) 0.8 % (0.0-2.0); EOSINOPHILS % (AUTO) 4.6 % (0.0-6.0); HEMATOCRIT 28 % (33-45); HEMOGLOBIN 9.3 g/dL (11.5-14.8); LYMPHOCYTES # (AUTO) 0.5 K/uL (0.8-4.8); MEAN CORPUSCULAR HGB CONC 33 g/dl (31.0-36.0); MEAN CORPUSCULAR VOLUME 96 fL (82-100); MONOCYTES # (AUTO) 0.5 K/uL (0.1-1.30); MONOCYTES % (AUTO) 8.8 % (2.0-12.0); NEUTROPHILS # (AUTO) 4.4 K/uL (1.8-8.9); NEUTROPHILS % (AUTO) 76.8 % (43.0-81.0); PLATELET COUNT (AUTO) 126 K/uL (150-450); RED BLOOD CELL COUNT(AUTO) 2.95 MIL/uL (4.0-5.2); WHITE BLOOD COUNT (AUTO) 5.7 K/uL (4.3-11.0)
[2021-09-12 04:33] LABS: CALCIUM, SERUM 9.6 mg/dL (8.5-10.1); CREATININE 5.1 mg/dL (0.6-1.3); MAGNESIUM 2.4 mg/dL (1.8-2.4); PHOSPHORUS 4.6 mg/dL (2.5-4.9); POTASSIUM 4.7 mmol/L (3.5-5.1)
[2021-09-12] MEDS: BLOOD SUGAR DIAGNOSTIC 1 EACH STRIP IN SCH ×3 (06:26→18:33)
[2021-09-12] MEDS: INSULIN REGULAR, HUMAN 100 UNIT/ML 3 ML VIAL SQ PRN (06:28)
--- NOTE | 2021-09-12 06:35 | NUR ---
RN NOTE PT IS CURRENTLY ON SIMPLE FACE MASK AT 8L WITH CURRENT OXYGEN SATURATION FLUCTUATING BETWEEN 92-96%. NGT NOTED ON RIGHT NARE RUNNING NEPRO AT 35 CC/HR. PT TOLERATIGN WELL WITH NO RESIDUAL NOTED. IV ACCESS NOTED ON LEFT UPPER ARM ML AND RIGHT UPPER CW PERMACATH NOTED WELL. ALL SAFETY MEASURES IMPLEMENTED. PT KEPT CLEAN AND COMFORTABLE. ALL DUE MEDS GIVEN ORDERED. WILL ENDORSE TO MORNING SHIFT RN FOR CHIDI.
--- NOTE | 2021-09-12 07:00 | NUR ---
RN NOTE PT RECEIVED ON BED. ALERT , DOES NOT FOLLOW COMMAND, ON FACE MASK AT 6 L , O2 SAT WNL, SHOWING NO S/SX OF RESP DISTRESS. NGT NOTED ON RIGHT NARE RUNNING NEPRO AT 35 CC/HR. PT TOLERATING WELL WITH NO RESIDUAL NOTED. IV ACCESS NOTED ON LEFT UPPER ARM ML AND RIGHT UPPER CW PERMCATH NOTED WELL. ALL SAFETY MEASURES IMPLEMENTED. WILL CONTINUE TO MONITOR AND ASSESS FOR ANY CHANGES DURING SHIFT.
[2021-09-12] MEDS: PANTOPRAZOLE 40 MG/PACK PACK GT SCH (08:12)
[2021-09-12] MEDS: SEVELAMER CARBONATE 800 MG POWD.PACK GT SCH ×3 (08:12→18:32)
[2021-09-12] MEDS: AMIODARONE HCL 200 MG TABLET GT SCH ×2 (08:13→18:33)
[2021-09-12] MEDS: FERROUS SULFATE (325 MG) 325 MG/TAB TABLET GT SCH (08:14)
[2021-09-12] MEDS: CALCIUM CARB 250MG /VITAMIN D 1 UDTAB GT SCH (08:14)
[2021-09-12] MEDS: ASPIRIN 81 MG TAB.CHEW GT SCH (08:14)
[2021-09-12] MEDS: ASCORBIC ACID 500 MG TABLET GT SCH (08:14)
[2021-09-12] MEDS: CLOPIDOGREL BISULFATE 75 MG TABLET GT SCH (08:15)
--- NOTE | 2021-09-12 12:00 | NUR ---
RN NOTES PT RECEIVING HD , TOLERATING WELL, CONTINUE TO MONITOR .
--- NOTE | 2021-09-12 14:00 | NUR ---
RN NOTES YOGURT AND JELLO GIVEN PO , PT TOLERATED WELL, NO DISTESS NOTED .
--- NOTE | 2021-09-12 15:50 | NUR ---
RN NOTES REPORT GIVEN TO LYDIA ROTHMAN FOR CONTINUITY OF CARE .
--- NOTE | 2021-09-12 16:00 | NUR ---
ASSUMED CARE OF PATIENT, REPORT RECEIVED FROM PAUL ROTHMAN.
[2021-09-12] MEDS: IV NS 0.9% 250 ML IV PRN (17:19)
--- NOTE | 2021-09-12 18:56 | NUR ---
END OF SHIFT NOTE: NO SIGNIFICANT EVENTS SINCE 1600. PER REPORT PT HAD DIALYSIS THIS AM 2L OFF. PT'S SON VISITED THIS EVENING APPEARS SUPPORTIVE.
--- NOTE | 2021-09-12 19:49 | NUR ---
RN NOTES RECEIVED CARE OF PATIENT WHILE PATIENT IN BED, A/O TO NAME ONLY, CONFUSED, PATIENT IN NO DISTRESS OR PAIN AT THIS TIME. PATIENT ON OXYGEN THERAPY VIA SIMPLE MASK AT 6L/MIN, BREATHING EVEN AND UNLABORED, OXYGEN SAT 98%. TELE MONITOR SHOWING NSR WITH BBB AND HR OF 78, PATIENT SHOWING NO SIGNS OF DISTRESS. NO SIGNIFICANT FINDINGS UPON INITIAL NURSING ASSESSMENTS. SAFETY MEASURES IMPLEMENTED PER HOSPITAL PROTOCOLS. WILL CONTINUE TO MONITOR PATIENT.
[2021-09-12] MEDS: EZETIMIBE 10 MG TABLET GT SCH (22:21)
[2021-09-12] MEDS: ATORVASTATIN 10 MG TABLET GT SCH (22:21)
[2021-09-12] MEDS: TAMSULOSIN 0.4 MG CAP.SR.24H GT SCH (22:21)
[2021-09-12] MEDS: ropiniROLE 0.5 MG TABLET GT SCH (22:21)
--- NOTE | 2021-09-12 22:52 | NUR ---
RN NOTES PATIENT TOLERATED PUDDING INTAKE. SCHEDULED MEDS WERE CRUSHED AND MIXED WITH PUDDING, NO SIGNS OF ASPIRATION OR DISTRESS NOTED ON PATIENT. WILL CONTINUE TO MONITOR PATIENT.
[2021-09-13] VITALS (24 sets, daily range): BP systolic 106–134; BP diastolic 48–80
[2021-09-13] MEDS: BLOOD SUGAR DIAGNOSTIC 1 EACH STRIP IN SCH ×4 (00:52→17:40)
[2021-09-13] MEDS: INSULIN REGULAR, HUMAN 100 UNIT/ML 3 ML VIAL SQ PRN ×2 (00:52→06:45)
[2021-09-13] MEDS: IPRATROPIUM NEB FS 0.5 MG/2.5 ML AMPUL.NEB NEB SCH ×4 (01:30→20:16)
[2021-09-13] MEDS: ALBUTEROL FS 2.5 MG/3 ML VIAL.NEB NEB SCH ×4 (01:30→20:16)
[2021-09-13 04:33] LABS: BASOPHILS # (AUTO) 0.1 K/uL (0.0-0.2); EOSINOPHILS % (AUTO) 4.6 % (0.0-6.0); HEMATOCRIT 26 % (33-45); HEMOGLOBIN 8.6 g/dL (11.5-14.8); LYMPHOCYTES # (AUTO) 0.5 K/uL (0.8-4.8); LYMPHOCYTES % (AUTO) 10.2 % (20.0-44.0); MEAN CORPUSCULAR HGB CONC 33 g/dl (31.0-36.0); MEAN CORPUSCULAR VOLUME 95 fL (82-100); MONOCYTES # (AUTO) 0.5 K/uL (0.1-1.30); MONOCYTES % (AUTO) 9.3 % (2.0-12.0); NEUTROPHILS # (AUTO) 3.7 K/uL (1.8-8.9); NEUTROPHILS % (AUTO) 74.9 % (43.0-81.0); PLATELET COUNT (AUTO) 115 K/uL (150-450); RED BLOOD CELL COUNT(AUTO) 2.72 MIL/uL (4.0-5.2)
[2021-09-13 04:43] LABS: CALCIUM, SERUM 9.4 mg/dL (8.5-10.1); CREATININE 3.6 mg/dL (0.6-1.3); POTASSIUM 4.2 mmol/L (3.5-5.1)
--- NOTE | 2021-09-13 07:30 | NUR ---
RN NOTES PT FOUND SEMI FOWLERS DISPLAYING NO S/S OF DISTRESS, PT ENDORSES NO PAIN AND BREATHING IS EVEN AND UNLABORED ON 6L O2 NC. R CW DIALYSIS CATH DRESSING IS CLEAN AND DRY. L UA ML IS PATIENT AND INTACT. PT IS TALKING AND DEMONSTRATING MILD CONFUSION. BILATERAL SOFT WRISTS APPLIED, PULSES PALPATED AND CAP REFILL < 3 SECONDS BILATERALLY. VSS, RN WILL MONITOR AND TREAT THROUGHOUT SHIFT. SAFETY MEASURES IN PLACE, BED LOCKED AND IN LOWEST POSITION, SIDE RAILS UPX2, CALL LIGHT WITHIN REACH, BED ALARM ARMED.
--- NOTE | 2021-09-13 07:36 | NUR ---
RN NOTES ENDORSED CARE OF PATIENT TO AM NURSE. PATIENT IN BED, A/O X1, ABLE TO MAKE NEEDS KNOWN. ALL NEEDS MET THROUGHOUT SHIFT. ALL DUE MEDS GIVEN. NO SIGNIFICANT FINDINGS UPON ALL NURSING ASSESSMENTS. ENDORSED TO AM NURSE FOR CHIDI.
[2021-09-13] MEDS: PANTOPRAZOLE 40 MG/PACK PACK GT SCH (08:58)
[2021-09-13] MEDS: FERROUS SULFATE (325 MG) 325 MG/TAB TABLET GT SCH (08:58)
[2021-09-13] MEDS: SEVELAMER CARBONATE 800 MG POWD.PACK GT SCH ×3 (08:58→17:24)
[2021-09-13] MEDS: CALCIUM CARB 250MG /VITAMIN D 1 UDTAB GT SCH (08:58)
[2021-09-13] MEDS: ASPIRIN 81 MG TAB.CHEW GT SCH (08:58)
[2021-09-13] MEDS: ASCORBIC ACID 500 MG TABLET GT SCH (08:58)
[2021-09-13] MEDS: CLOPIDOGREL BISULFATE 75 MG TABLET GT SCH (08:58)
[2021-09-13] MEDS: AMIODARONE HCL 200 MG TABLET GT SCH ×2 (08:59→17:24)
--- NOTE | 2021-09-13 14:30 | NUR ---
TRANSFER PT DOWNGRADED TO [facility], RN TRANSPORTED PT VIA HOSPITAL BED ON PORTABLE BEDSIDE MONITOR AND 5L O2 NC. RN WAS ACCOMPANIED BY LORNA GUERRA AND GAVE BEDSIDE REPORT TO LORNA HODGSON. BELONGINGS BROUGHT ALONG WITH RX, REPORT AND CHART. NO COMPLICATION OCCURRED IN TRANSPORT. PT REMAINS CONFUSED AND PLEASANT. L UA ML IS PATIENT AND INTACT. PT ENDORSED IN STABLE CONDITION FOR CHIDI.
[2021-09-13] MEDS: ENSURE ENLIVE 237 ML LIQUID (VANILLA) PO SCH (17:25)
[2021-09-13] MEDS: DEXTROSE 50%-WATER 50 ML DISP.SYRIN IV PRN (17:38)
--- NOTE | 2021-09-13 18:44 | NUR ---
RN CLOSING NOTE PT REMAINED STABLE THROUGHOUT SHIFT. PT SEMI FOWLERS DISPLAYING NO S/S OF DISTRESS, PT ENDORSES NO PAIN AND BREATHING IS EVEN AND UNLABORED ON 5L O2 NC. R CW DIALYSIS CATH DRESSING IS CLEAN AND DRY. L UA ML IS PATIENT AND INTACT. PT IS TALKING AND DEMONSTRATING MILD CONFUSION. BILATERAL SOFT WRISTS APPLIED, PULSES PALPATED AND CAP REFILL < 3 SECONDS BILATERALLY. VSS, RN WILL MONITOR AND TREAT THROUGHOUT SHIFT. SAFETY MEASURES IN PLACE, BED LOCKED AND IN LOWEST POSITION, SIDE RAILS UPX2, CALL LIGHT WITHIN REACH, BED ALARM ARMED. WILL ENDORSE TO VETERINARY PHYSIOLOGIST RN.
--- NOTE | 2021-09-13 19:40 | NUR ---
RN NOTE RECEIVED PATIENT IN BED, AWAKE, AOX1. VERBALLY RESPONSIVE TO NAME AND TOUCH. TALKING TO SELF. BREATHING EVEN AND UNLABORED. CURRENTLY ON 5L/MIN VIA NASAL CANNULA. TOLERATING WELL. NO S/S OF RESPIRATORY DISTRESS AT THIS TIME. HOB ELEVATED 40 DEGREES. SKIN WARM AND DRY. NOTED WITH RIGHT UPPER CHEST WALL PERMCATH. DRESSING INTACT, NO BLEEDING. LEFT UPPER CHEST WALL PACEMAKER. LEFT UPPER ARM MIDLINE. NO IVF INFUSING. PATENT. NO INFILTRATION. BILATERAL SOFT WRIST RESTRAINTS. BILATERAL CAPILLARY REFILL WNL. DENIES PAIN AT THIS TIME. ASSISTED WITH TURNING AND REPOSITIONING. REINFORCED WOUND DRESSINGS ON RIGHT LOWER LEG AND RIGHT FOREARM. BED LOW, IN LOCKED POSITION. CALL LIGHT WITHIN REACH. WILL CONTINUE TO MONITOR.
[2021-09-13] MEDS: ATORVASTATIN 10 MG TABLET GT SCH (21:29)
[2021-09-13] MEDS: TAMSULOSIN 0.4 MG CAP.SR.24H GT SCH (21:29)
[2021-09-13] MEDS: ropiniROLE 0.5 MG TABLET GT SCH (21:29)
[2021-09-13] MEDS: EZETIMIBE 10 MG TABLET GT SCH (21:30)
[2021-09-14] VITALS: BP 115/65
[2021-09-14] MEDS: BLOOD SUGAR DIAGNOSTIC 1 EACH STRIP IN SCH ×4 (00:40→18:07)
[2021-09-14] MEDS: DEXTROSE 50%-WATER 50 ML DISP.SYRIN IV PRN ×3 (00:41→12:23)
[2021-09-14] MEDS: IPRATROPIUM NEB FS 0.5 MG/2.5 ML AMPUL.NEB NEB SCH ×4 (01:30→19:51)
[2021-09-14] MEDS: ALBUTEROL FS 2.5 MG/3 ML VIAL.NEB NEB SCH ×4 (01:30→19:51)
[2021-09-14 04:00] VITALS: BP 100/58
[2021-09-14 06:45] LABS: BASOPHILS # (AUTO) 0.1 K/uL (0.0-0.2); BASOPHILS % (AUTO) 1.4 % (0.0-2.0); EOSINOPHILS % (AUTO) 3.4 % (0.0-6.0); HEMATOCRIT 27 % (33-45); LYMPHOCYTES # (AUTO) 0.6 K/uL (0.8-4.8); MEAN CORPUSCULAR HGB CONC 33 g/dl (31.0-36.0); MEAN CORPUSCULAR VOLUME 95 fL (82-100); MONOCYTES # (AUTO) 0.5 K/uL (0.1-1.30); NEUTROPHILS # (AUTO) 3.9 K/uL (1.8-8.9); NEUTROPHILS % (AUTO) 75.2 % (43.0-81.0); PLATELET COUNT (AUTO) 119 K/uL (150-450); RED BLOOD CELL COUNT(AUTO) 2.83 MIL/uL (4.0-5.2); WHITE BLOOD COUNT (AUTO) 5.1 K/uL (4.3-11.0)
[2021-09-14 06:58] LABS: CALCIUM, SERUM 10.3 mg/dL (8.5-10.1); CREATININE 4.7 mg/dL (0.6-1.3); POTASSIUM 4.7 mmol/L (3.5-5.1)
--- NOTE | 2021-09-14 07:30 | NUR ---
RN OPENING NOTE PT RESTING IN BED CURRENTLY. PT SEMI FOWLERS DISPLAYING NO S/S OF DISTRESS, PT ENDORSES NO PAIN AND BREATHING IS EVEN AND UNLABORED ON 5L O2 NC. R CW DIALYSIS CATH DRESSING IS CLEAN AND DRY. L UA ML IS PATIENT AND INTACT. BILATERAL SOFT WRISTS APPLIED, PULSES PALPATED AND CAP REFILL < 3 SECONDS BILATERALLY. VSS, RN WILL MONITOR AND TREAT THROUGHOUT SHIFT. SAFETY MEASURES IN PLACE, BED LOCKED AND IN LOWEST POSITION, SIDE RAILS UPX2, CALL LIGHT WITHIN REACH, BED ALARM ARMED. WILL CONTINUE TO MONITOR.
[2021-09-14 08:00] VITALS: BP 128/65
[2021-09-14] MEDS: SEVELAMER CARBONATE 800 MG POWD.PACK GT SCH ×3 (08:00→17:44)
[2021-09-14] MEDS: AMIODARONE HCL 200 MG TABLET GT SCH ×2 (09:00→17:44)
[2021-09-14] MEDS: ENSURE ENLIVE 237 ML LIQUID (VANILLA) PO SCH ×2 (09:27→17:44)
[2021-09-14] MEDS: CLOPIDOGREL BISULFATE 75 MG TABLET GT SCH (09:56)
[2021-09-14] MEDS: FERROUS SULFATE (325 MG) 325 MG/TAB TABLET GT SCH (09:56)
[2021-09-14] MEDS: PANTOPRAZOLE 40 MG/PACK PACK GT SCH (09:56)
[2021-09-14] MEDS: CALCIUM CARB 250MG /VITAMIN D 1 UDTAB GT SCH (09:57)
[2021-09-14] MEDS: ASCORBIC ACID 500 MG TABLET GT SCH (09:57)
[2021-09-14] MEDS: ASPIRIN 81 MG TAB.CHEW GT SCH (09:57)
--- NOTE | 2021-09-14 10:10 | NUR ---
RN NOTE RENVELA AND AMIODARONE AM MEDS HELD DUE TO PT RECEIVING HEMODIALYSIS. PT BP CURRENTLY STABLE AT 124/64. WILL CONTINUE TO MONITOR.
[2021-09-14 12:00] VITALS: BP 161/54
--- NOTE | 2021-09-14 12:32 | NUR ---
RN NOTE PT HAD BLOOD SUGAR OF 63 AT NOON ACCU CHK. PT GIVEN 50ML D50 SYRINGE BECAUSE PT REFUSED TO EAT OR DRINK. WILL CONTINUE TO MONITOR.
[2021-09-14 16:00] VITALS: BP 123/41
--- NOTE | 2021-09-14 18:33 | NUR ---
RN CLOSING NOTE PT REMAINED STABLE THRU SHIFT. PT RESTING IN BED CURRENTLY. PT SEMI FOWLERS DISPLAYING NO S/S OF DISTRESS, PT ENDORSES NO PAIN AND BREATHING IS EVEN AND UNLABORED ON 5L O2 NC. R CW DIALYSIS CATH DRESSING IS CLEAN AND DRY. L UA ML IS PATIENT AND INTACT. BILATERAL SOFT WRISTS APPLIED, PULSES PALPATED AND CAP REFILL < 3 SECONDS BILATERALLY. SAFETY MEASURES IN PLACE, BED LOCKED AND IN LOWEST POSITION, SIDE RAILS UPX2, CALL LIGHT WITHIN REACH, BED ALARM ARMED. WILL ENDORSE TO SOFTWARE PRODUCT MANAGER RN.
[2021-09-14 20:00] VITALS: BP 113/55
--- NOTE | 2021-09-14 20:00 | NUR ---
RN NOTE RECEIVED PATIENT IN BED, SLEEPING. AROUSABLE TO NAME AND TOUCH. BREATHING EVEN AND UNLABORED. HOWEVER, OXYGEN SATURATION IN 80'S. DENIES FEELING SHORTNESS OF BREATH. PATIENT WAS CURRENTLY ON 5L NASAL CANNULA. SWITCHED TO FACE MASK AT 5L/MIN AND SATURATION INCREASED TO LOW 93-94 PERCENT. HOB ELEVATED 40 DEGREES. SKIN COOL AND PALE. NOTED WITH RCW PERMCATH, LEFT CHEST WALL PACEMAKER, AND LEFT UPPER ARM MID LINE. NO IVF RUNNING. BILATERAL SOFT WRIST RESTRAINTS, CAPILLARY REFILL WNL. RELEASED FOR ACTIVE RANGE OF MOTION. DENIES CHEST PAIN OR ANY PAIN. BED LOW, IN LOCKED POSITION. CALL LIGHT WITHIN REACH.
[2021-09-14] MEDS: TAMSULOSIN 0.4 MG CAP.SR.24H GT SCH (21:31)
[2021-09-14] MEDS: ropiniROLE 0.5 MG TABLET GT SCH (21:31)
[2021-09-14] MEDS: ATORVASTATIN 10 MG TABLET GT SCH (21:32)
[2021-09-14] MEDS: EZETIMIBE 10 MG TABLET GT SCH (21:32)
[2021-09-15] VITALS: BP 115/62
[2021-09-15] MEDS: BLOOD SUGAR DIAGNOSTIC 1 EACH STRIP IN SCH ×4 (00:12→17:34)
[2021-09-15] MEDS: IPRATROPIUM NEB FS 0.5 MG/2.5 ML AMPUL.NEB NEB SCH ×3 (01:21→13:50)
[2021-09-15] MEDS: ALBUTEROL FS 2.5 MG/3 ML VIAL.NEB NEB SCH ×3 (01:22→13:50)
[2021-09-15 04:00] VITALS: BP 114/75
--- NOTE | 2021-09-15 06:26 | NUR ---
RN NOTE NO SIGNIFICANT CHANGES DURING SHIFT. ATTEMPTED TO TITRATE OXYGEN HOWEVER OXYGEN SATURATION WOULD DECREASE. NASAL CANNULA WAS SWITCHED TO FACE MASK BEGINNING OF SHIFT PATIENT APPEARS TO BE A MOUTH BREATHER. PATIENT STILL ON 4L/MIN VIA FACE MASK.. RT AWARE AND AGREED. TOLERATED BREATHING TREATMENTS. NO CHANGES IN MENTATION. AOX1. WOUND ASSESSMENT DONE, PICTURES TAKEN AND FILED IN CHART. DENIES CHEST PAIN OR ANY BODY PAIN. BILATERAL SOFT WRIST RESTRAINTS WERE RELEASED SEVERAL TIMES TO PERFORM RANGE OF MOTION. PATIENT STILL WITH EPISODES OF PULLING OXYGEN MASK/DESATURATION AND REMOVING WOUND DRESSINGS. NO S/S OF HYPO/HYPERGLYCEMIA. BED LOW IN LOCKED POSITION. WILL CONTINUE TO MONITOR.
[2021-09-15 07:27] LABS: BASOPHILS # (AUTO) 0.1 K/uL (0.0-0.2); BASOPHILS % (AUTO) 1.3 % (0.0-2.0); EOSINOPHILS % (AUTO) 1.7 % (0.0-6.0); HEMATOCRIT 26 % (33-45); HEMOGLOBIN 8.5 g/dL (11.5-14.8); LYMPHOCYTES # (AUTO) 0.5 K/uL (0.8-4.8); LYMPHOCYTES % (AUTO) 11.1 % (20.0-44.0); MEAN CORPUSCULAR HGB CONC 32 g/dl (31.0-36.0); MEAN CORPUSCULAR VOLUME 96 fL (82-100); MONOCYTES # (AUTO) 0.4 K/uL (0.1-1.30); MONOCYTES % (AUTO) 8.1 % (2.0-12.0); NEUTROPHILS # (AUTO) 3.6 K/uL (1.8-8.9); NEUTROPHILS % (AUTO) 77.8 % (43.0-81.0); PLATELET COUNT (AUTO) 121 K/uL (150-450); RED BLOOD CELL COUNT(AUTO) 2.74 MIL/uL (4.0-5.2); WHITE BLOOD COUNT (AUTO) 4.6 K/uL (4.3-11.0)
--- NOTE | 2021-09-15 07:30 | NUR ---
CAP AND STUD MACHINE OPERATOR AM NOTE RECEIVE PT IN BED, AO X 1-2, ON 4L O2 VIA MASK, NO SOB, RESPIRATION UNLABORED, SR WITH BBB HR 85 ON MONITOR, DENIES CHEST PAIN OR DISCOMFORT. R CW DIALYSIS CATH DRESSING IS CLEAN AND DRY. L UA ML FLUSHES WELL, SITE CLEAR. BILATERAL SOFT WRISTS IN PLACE, RELEASED, CHECKED FOR CIRCULATION AND PULSE THEN EVERY 2 HOURS. SEE NURSING FLOWSHEET FOR SKIN ISSUES. WILL PERFORM PRESCRIBED WOUND TREATMENT ORDERED. ON PUREED DIET, CRUSH MEDS, WILL TURN AND REPOSITION Q [address]RS[address] SAFETY MEASURES IN PLACE, BED LOCKED AND IN LOWEST POSITION, SIDE RAILS UPX2, CALL LIGHT WITHIN REACH, BED ALARM ON, WILL CONTINUE TO MONITOR.
[2021-09-15 07:42] LABS: CREATININE 3.4 mg/dL (0.6-1.3); POTASSIUM 4.6 mmol/L (3.5-5.1)
[2021-09-15 08:00] VITALS: BP 130/75
[2021-09-15] MEDS: ENSURE ENLIVE 237 ML LIQUID (VANILLA) PO SCH ×2 (08:08→17:31)
[2021-09-15] MEDS: PANTOPRAZOLE 40 MG/PACK PACK GT SCH (08:57)
[2021-09-15] MEDS: SEVELAMER CARBONATE 800 MG POWD.PACK GT SCH ×3 (08:57→17:34)
[2021-09-15] MEDS: ASPIRIN 81 MG TAB.CHEW GT SCH (08:57)
[2021-09-15] MEDS: ASCORBIC ACID 500 MG TABLET GT SCH (08:57)
[2021-09-15] MEDS: FERROUS SULFATE (325 MG) 325 MG/TAB TABLET GT SCH (08:57)
[2021-09-15] MEDS: CLOPIDOGREL BISULFATE 75 MG TABLET GT SCH (08:57)
[2021-09-15] MEDS: CALCIUM CARB 250MG /VITAMIN D 1 UDTAB GT SCH (08:57)
[2021-09-15] MEDS: AMIODARONE HCL 200 MG TABLET GT SCH ×2 (08:58→17:34)
--- NOTE | 2021-09-15 09:30 | NUR ---
RN NOTES DUE MEDS GIVEN.
--- NOTE | 2021-09-15 10:45 | NUR ---
RN NOTES PRACHI LECHUGA WOUND CARE NURSE AT BEDSIDE. SACRAL DTI NOTED, PICTURE TAKEN AND PLACED IN CHART.
--- NOTE | 2021-09-15 10:55 | NUR ---
WOUND CARE CONSULT/FOLLOW UP: PT SEEN FOR SKIN TEARS TO LEFT ARM AND FOR SACRAL DEEP TISSUE INJURY IN EVOLUTION OVER PREVIOUS SACRAL SCARRING. RECOMMENDATIONS MADE FOR WOUND CARE AND SKIN PROTECTION. DISCUSSED WITH NURSING STAFF. PT NOTED TO HAVE MULTIPLE CO-MORBIDITIES INCLUDING ACUTE HYPOXIC RESPIRATORY FAILURE, ACUTE ON CHRONIC ENCEPHALOPATHY, NTEMI, END STAGE RENAL FAILURE(ON HEMODIALYSIS), HYPERTENSION, DIABETES, COPD AND CHF. DUE TO MULTIPLE CO-MORBIDITIES, FURTHER SKIN BREAKDOWN MAY BE UNAVOIDABLE. PT NOTED TO HAVE VERY BONY SACRAL AREA WITH EDEMA AND SCARRING. PT IS ON FIRST STEP CIRRUS LOW AIRLOSS MATTRESS. ALL SKIN PROTECTION MEASURES IN PLACE AND DISCUSSED WITH NURSING STAFF. MD IN AGREEMENT WITH PLAN OF CARE.
[2021-09-15 12:00] VITALS: BP 129/74
[2021-09-15 16:00] VITALS: BP 132/69
--- NOTE | 2021-09-15 17:08 | NUR ---
RN NOTES REPORT GIVEN TO VIVIENNE ROTHMAN AT FACILITY. PATIENT FOR CUSTOMER AGENT AT 1800
[2021-09-15 17:34] VITALS: BP 132/69
--- NOTE | 2021-09-15 18:40 | NUR ---
RN NOTES PT DISCHARGED TO [facility] IN STABLE CONDITION PER MACEY JACOB INSTRUCTIONS, MED RECON LIST AND HEALTH TEACHING FORMS PROVIDED AND GIVEN TO EMT. ALL PAPERWORKS SIGNED AND COMPLETED, NO BLEONGINGS. CHERIE MIDLINE REMOVED, CATH TIP COMPLETE, APPLIED PRESSURE AND DRESSING. NO BLEEDING. RCW HD PERM CATH CDI DRESSING. REPORT CALLED TO VIVIENNE AT RECEIVING FACILITY AND WILL GO TO ROOM 2A. PT LEFT UNIT IN STABLE CONDITION VIA GURNEY. PT ENDORSED TO AMBULANCE CREW ACCORDINGLY.
== END 2021-09-15 19:37 | DRG 207 ==
LOC: ER 09:03 → TELE 10:56 → TELE-TD 09-07 05:51 → ICU 09-07 07:14 → TELE-TD 09-13 15:03 → MEDSG1 09-15 09:28
PROVIDERS: ADMIT Nurse Practitioner Family; ATTEND Internal Medicine
PROC: 5A1955Z Respiratory Ventilation, Greater than 96 Consecutive Hours (ICD-10-PCS; principal; 2021-09-07)
PROC: 0BH17EZ Insertion of Endotracheal Airway into Trachea, Via Natural or Artificial Opening (ICD-10-PCS; 2021-09-07)
PROC: 5A1D70Z Performance of Urinary Filtration, Intermittent, Less than 6 Hours Per Day (ICD-10-PCS; 2021-09-07)
PROC: 05HC33Z Insertion of Infusion Device into Left Basilic Vein, Percutaneous Approach (ICD-10-PCS; 2021-09-07)
DX: J69.0 Pneumonitis due to inhalation of food and vomit (principal); I21.4 Non-ST elevation (NSTEMI) myocardial infarction; J96.21 Acute and chronic respiratory failure with hypoxia; N18.6 End stage renal disease; I50.23 Acute on chronic systolic (congestive) heart failure; G92.8 Other toxic encephalopathy; I13.2 Hypertensive heart and chronic kidney disease with heart failure and with stage 5 chronic kidney disease, or end stage renal disease; N39.0 Urinary tract infection, site not specified; J44.0 Chronic obstructive pulmonary disease with (acute) lower respiratory infection; E87.2 Acidosis; J98.11 Atelectasis; Z16.12 Extended spectrum beta lactamase (ESBL) resistance; I25.10 Atherosclerotic heart disease of native coronary artery without angina pectoris; Z99.2 Dependence on renal dialysis; Z20.822 Contact with and (suspected) exposure to COVID-19; Z86.73 Personal history of transient ischemic attack (TIA), and cerebral infarction without residual deficits; F03.90 Unspecified dementia, unspecified severity, without behavioral disturbance, psychotic disturbance, mood disturbance, and anxiety; Z95.810 Presence of automatic (implantable) cardiac defibrillator; I25.2 Old myocardial infarction; E11.22 Type 2 diabetes mellitus with diabetic chronic kidney disease; E11.40 Type 2 diabetes mellitus with diabetic neuropathy, unspecified; R33.9 Retention of urine, unspecified; F41.9 Anxiety disorder, unspecified; F32.9 Major depressive disorder, single episode, unspecified; K21.9 Gastro-esophageal reflux disease without esophagitis; Z88.0 Allergy status to penicillin; Z91.040 Latex allergy status; Z79.4 Long term (current) use of insulin; Z79.899 Other long term (current) drug therapy; Z79.82 Long term (current) use of aspirin; B96.89 Other specified bacterial agents as the cause of diseases classified elsewhere; F09 Unspecified mental disorder due to known physiological condition; M20.41 Other hammer toe(s) (acquired), right foot; M20.42 Other hammer toe(s) (acquired), left foot; Z86.16 Personal history of COVID-19; Z87.891 Personal history of nicotine dependence; Z95.1 Presence of aortocoronary bypass graft; M62.562 Muscle wasting and atrophy, not elsewhere classified, left lower leg; M62.561 Muscle wasting and atrophy, not elsewhere classified, right lower leg; I70.0 Atherosclerosis of aorta; Z86.19 Personal history of other infectious and parasitic diseases; K72.10 Chronic hepatic failure without coma; G93.89 Other specified disorders of brain; D69.6 Thrombocytopenia, unspecified; Z87.19 Personal history of other diseases of the digestive system; B96.20 Unspecified Escherichia coli [E. coli] as the cause of diseases classified elsewhere; D64.9 Anemia, unspecified; L89.159 Pressure ulcer of sacral region, unspecified stage; S51.812A Laceration without foreign body of left forearm, initial encounter; S51.811A Laceration without foreign body of right forearm, initial encounter; X58.XXXA Exposure to other specified factors, initial encounter; Y92.9 Unspecified place or not applicable; S81.811A Laceration without foreign body, right lower leg, initial encounter
CPT/HCPCS: 31720; 36410; 36415; 36600; 70450-TC; 71045-TC; 71250-TC; 80048-TC; 80053-TC; 80061-TC; 80076-TC; 80202-TC; 81001; 82140-TC; 82803-TC; 82962-TC; 83540-TC; 83605-TC; 83735-TC; 83880; 84100-TC; 84439-TC; 84443-TC; 84484-TC; 85025-TC; 85730-TC; 86706; 87040-TC; 87070-TC; 87081-TC; 87086-TC; 87186-TC; 87340; 90935-TC; 92526; 92611-TC; 93307-TC; 94003-TC; 94640-TC; 94760-TC; 94762-TC; 94799-TC; 97116-TC; 97530-TC; A6253; A6403; C9113; C9803; G0378; G0480; J1650; J1815; J2185; J2370; J3370; J3480; J3490; J7030; J7050; J7060